=== PATIENT | male | born 1995 | race Caucasian/White ===

== ENCOUNTER 2021-04-08 15:53 | Emergency (ER) | payer MEDICAID ==
[~2021-04-08] VITALS: Ht 177.8 cm; Wt 54.5 kg
[2021-04-08 16:39] VITALS: BP 124/74
--- NOTE | 2021-04-08 20:54 | NUR ---
Not in Lobby.
== END 2021-04-09 02:21 | disposition left against medical advice (07) ==
LOC: ER 15:55
DX: Z53.21 Procedure and treatment not carried out due to patient leaving prior to being seen by health care provider (principal)

== ENCOUNTER 2024-01-03 11:55 | Outpatient (CLI) | payer MEDICAID | END 2024-01-03 23:59 | disposition home or self-care (01) | LOC: RAD 11:55 | PROVIDERS: ATTEND Student in an Organized Health Care Education/Training Program | DX: R56.9 Unspecified convulsions (principal); Z87.898 Personal history of other specified conditions | CPT/HCPCS: 95816 ==